=== PATIENT | female | born 1990 | race Caucasian/White ===

== ENCOUNTER 2018-03-06 14:53 | Emergency (ER) | payer OTHER ==
[~2018-03-06] VITALS: Ht 172.7 cm; Wt 70.9 kg
[~2018-03-06 14:53] MED LIST: NO HOME MEDICATIONS; PROAIR HFA0.09 MG/AC IH
[2018-03-06 14:57] VITALS: BP 132/90; TEMP 97.9
[2018-03-06] MEDS ORDERED: MIRENA52 MG IY (15:41)
[2018-03-06 16:31] VITALS: PULSE 80
== END 2018-03-06 16:32 | disposition home or self-care (01) ==
LOC: COL.ER 14:53
DX: S61.012A Laceration without foreign body of left thumb without damage to nail, initial encounter (principal); J45.909 Unspecified asthma, uncomplicated; W26.0XXA Contact with knife, initial encounter; Y92.89 Other specified places as the place of occurrence of the external cause

== ENCOUNTER 2022-09-06 03:23 | Emergency (ER) | payer SELFPAY ==
[~2022-09-06 03:23] MED LIST changes: +MIRENA52 MG IY
[2022-09-06 03:30] VITALS: BP 135/90; TEMP 97.4
[2022-09-06 04:05] VITALS: PULSE 74
== END 2022-09-06 04:05 | disposition home or self-care (01) ==
LOC: COL.ER 03:23
DX: S60.111A Contusion of right thumb with damage to nail, initial encounter (principal); Z28.310 Unvaccinated for COVID-19; W23.0XXA Caught, crushed, jammed, or pinched between moving objects, initial encounter; Y92.59 Other trade areas as the place of occurrence of the external cause; Y99.0 Civilian activity done for income or pay